=== PATIENT | male | born 1990 | race African-American/Black ===

== ENCOUNTER 2016-08-13 11:19 | Inpatient (IN) | payer OTHER ==
[2016-08-13 12:03] VITALS: BMI 27.4
--- NOTE | 2016-08-13 13:12 | HP ---
CIWA Score - CIWA Score Nausea/Vomitin-No Nausea/No Vomiting Muscle Tremors: 4-Moderate,w/Arms Extend Anxiety: 3 Agitation: 4-Moderately Restless Paroxysmal Sweats: 3 Orientation: 0-Oriented Tacttile Disturbances: 0-None Auditory Disturbances: 0-None Visual Disturbances: 0-None Headache: 1-Very Mild CIWA-Ar Total Score: 15 Admission ROS BHS - HPI Chief Complaint: I cant live like this any more need to stop drinking. Allergies/Adverse Reactions: Allergies Allergy/AdvReac Type Severity Reaction Status Date / Time No Known Allergies Allergy Verified 08/13/16 12:11 History of Present Illness: pt is a 25yr old male with a history of alcohol dependence seeking detox for treatment. Exam Limitations: No Limitations - Ebola screening Have you traveled outside of the country in the last 21 days: No Have you had contact with anyone from an Ebola affected area: No Have you been sick,other than usual withdrawal symptoms: No Do you have a fever: No - Review of Systems Constitutional: Chills, Diaphoresis, Loss of Appetite, Night Sweats EENT: reports: No Symptoms Reported Respiratory: reports: No Symptoms reported Cardiac: reports: Syncope GI: reports: Diarrhea, Poor Appetite, Poor Fluid Intake : reports: No Symptoms Reported Musculoskeletal: reports: Back Pain Integumentary: reports: Flushing, Sweating Neuro: reports: Headache, Tingling, Tremors Endocrine: reports: Excessive Sweating, Flushing, Intolerance to Cold, Intolerance to Heat Hematology: reports: No Symptoms Reported Psychiatric: reports: No Sypmtoms Reported, Judgement Intact, Orientated x3, Agitated, Anxious Other Systems: Reviewed and Negative Patient History - Patient Medical History Hx Anemia: No Hx Asthma: No Hx Chronic Obstructive Pulmonary Disease (COPD): No Hx Cancer: No Hx Cardiac Disorders: No Hx Congestive Heart Failure: No Hx Hypertension: Yes (no medication) Hx Hypercholesterolemia: No Hx Pacemaker: No HX Cerebrovascular Accident: No Hx Seizures: No Hx Dementia: No Hx Diabetes: No Hx Gastrointestinal Disorders: No Hx Liver Disease: No Hx Genitourinary Disorders: No Hx Sexually Transmitted Disorders: No Hx Renal Disease (ESRD): No Hx Thyroid Disease: No Hx Human Immunodeficiency Virus (HIV): No (NEGATIVE HX) Hx Hepatitis C: No (negative) Hx Depression: Yes Hx Suicide Attempt: No (denies) Hx Bipolar Disorder: No Hx Schizophrenia: No Other Medical History: anxiety - Patient Surgical History Past Surgical History: No Hx Neurologic Surgery: No Hx Cataract Extraction: No Hx Cardiac Surgery: No Hx Lung Surgery: No Hx Breast Surgery: No Hx Breast Biopsy: No Hx Abdominal Surgery: No Hx Appendectomy: No Hx Cholecystectomy: No Hx Genitourinary Surgery: Yes (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 History Hx Alcohol Use: Yes Hx Substance Use: Yes Substance Use Type: Alcohol, Marijuana Hx Substance Use Treatment: Yes - Substances Abused Alcohol-beer/binh/cognac Route: Oral Frequency: Daily Amount used: 1 case/3 pts. Age of first use: 14 Date of Last Use: 08/13/16 Marijuana Route: Smoking Frequency: Daily Amount used: $50 Age of first use: 14 Date of Last Use: 08/13/16 Family Disease History - Family Disease History Family Disease History: Other: Grandparent (GM-HTN) Admission Physical Exam BHS - Vital Signs Vital Signs: Vital Signs - 24 hr 08/13/16 11:56 Temperature 97.1 F L Pulse Rate 93 H Respiratory 20 Rate Blood Pressure 135/81 - Physical General Appearance: Yes: Appropriately Dressed, Moderate Distress, Tremorous, Irritable, Sweating, Anxious HEENTM: Yes: Normal Voice, Nasal Congestion Respiratory: Yes: Lungs Clear, Normal Breath Sounds, No Respiratory Distress Neck: Yes: No masses,lesions,Nodules Breast: Yes: Within Normal Limits Cardiology: Yes: Regular Rhythm, Regular Rate, S1, S2 Abdominal: Yes: Normal Bowel Sounds, Non Tender, Soft Genitourinary: Yes: Within Normal Limits Back: Yes: Normal Inspection Musculoskeletal: Yes: full range of Motion Extremities: Yes: Normal Capillary Refill, Normal Inspection, Non-Tender, Tremors Neurological: Yes: Fully Oriented, Alert Integumentary: Yes: Normal Color, Diaphoresis Lymphatic: Yes: Within Normal Limits - Diagnostic (1) Cannabis dependence Current Visit: Yes Status: Chronic (2) HTN (hypertension) Current Visit: Yes Status: Chronic Qualifiers: Hypertension type: essential hypertension Qualified Code(s): I10 - Essential (primary) hypertension (3) Scoliosis deformity of spine Current Visit: Yes Status: Chronic Qualifiers: Scoliosis type: idiopathic Spinal region: lumbar (4) Alcohol dependence with uncomplicated withdrawal Current Visit: Yes Status: Chronic Cleared for Admission [facility] - Detox or Rehab [facility] Level of Care: Medically Managed Detox Regimen/Protocol: Librium [facility] Breath Alcohol Content Breath Alcohol Content: 0.051 Urine Drug Screen - Results Drug Screen Negative: No Urine Drug Screen Results: THC-Marijuana
[2016-08-13] MEDS ORDERED: guaiFENesin/D-METHORPHAN HB 10 ML UNIT-DOSE CUPS PO PRN (13:14)
[2016-08-13] MEDS ORDERED: P-EPHED 60MG/TRIPROLIDI 2.5MG TABLET PO PRN (13:14)
[2016-08-13] MEDS ORDERED: NICOTINE POLACRILEX 2 MG GUM BUC PRN (13:14)
[2016-08-13] MEDS ORDERED: ACETAMINOPHEN 325 MG TABLET (FP) PO PRN (13:14)
[2016-08-13] MEDS ORDERED: MENTHOL/PHENOL 1 EACH UD MM PRN (13:14)
[2016-08-13] MEDS ORDERED: LOPERAMIDE HCL 2 MG CAPSULE PO PRN (13:14)
[2016-08-13] MEDS ORDERED: MAGNESIUM HYDROX 2400MG/30ML ORAL SUSPENSION 30 ML CUP PO PRN (13:14)
[2016-08-13] MEDS ORDERED: MAGNESIUM CITRATE 300 ML BOTTLE PO PRN (13:14)
[2016-08-13] MEDS ORDERED: MAG HYDROX/AL HYDROX/SIMETH 30 ML UNIT-DOSE CUP PO PRN (13:14)
[2016-08-13] MEDS ORDERED: IBUPROFEN 400 MG TABLET (FP) PO PRN (13:14)
[2016-08-13] MEDS ORDERED: chlordiazePOXIDE HCL 25 MG CAPSULE PO ONE (14:27)
[2016-08-13] MEDS: ENALAPRIL MALEATE 5 MG TABLET (FP) PO SCH (15:35)
--- NOTE | 2016-08-13 16:21 | EKG ---
Test Reason : Blood Pressure : / mmHG Vent. Rate : 069 BPM Atrial Rate : 069 BPM P-R Int : 134 ms QRS Dur : 100 ms QT Int : 376 ms P-R-T Axes : 005 043 -07 degrees QTc Int : 402 ms NORMAL SINUS RHYTHM NONSPECIFIC T WAVE ABNORMALITY ABNORMAL ECG NO PREVIOUS ECGS AVAILABLE Confirmed by MONY DENIS MD ([id number]) on 08/13/2016 4:21:16 PM Referred By: Confirmed By:MONY DENIS MD
[2016-08-13] MEDS: chlordiazePOXIDE HCL 25 MG CAPSULE PO SCH ×2 (17:41→22:18)
[2016-08-13 20:11] LABS: URINE APPEARANCE CLEAR; URINE BILIRUBIN NEGATIVE (NEGATIVE); URINE BLOOD NEGATIVE (NEGATIVE); URINE COLOR STRAW; URINE GLUCOSE (UA) NEGATIVE (NEGATIVE); URINE KETONE NEGATIVE (NEGATIVE); URINE LEUK ESTERASE NEGATIVE (NEGATIVE); URINE NITRITE NEGATIVE (NEGATIVE); URINE PROTEIN NEGATIVE (NEGATIVE); URINE UROBILINOGEN NEGATIVE E.U./dl (0.2-1.0)
[2016-08-13] MEDS: THIAMINE HCL 100 MG TABLET (FP) PO SCH (22:18)
[2016-08-14] MEDS: diphenhydrAMINE HCL 50 MG CAPSULE PO PRN (01:12)
[2016-08-14] MEDS: chlordiazePOXIDE HCL 25 MG CAPSULE PO PRN ×2 (01:13→13:48)
[2016-08-14] MEDS: chlordiazePOXIDE HCL 25 MG CAPSULE PO SCH ×4 (05:40→22:16)
[2016-08-14 10:13] LABS: MCH 26.3 pg (25.7-33.7); MCHC 32.8 g/dl (32.0-35.9); MEAN PLT VOLUME 8.4 fl (7.5-11.1); PLATELET COUNT 284 K/MM3 (134-434); RDW 13.7 % (11.9-15.9); WHITE BLOOD COUNT 6.6 K/mm3 (4.0-10.0)
[2016-08-14] MEDS: ENALAPRIL MALEATE 5 MG TABLET (FP) PO SCH (10:17)
[2016-08-14] MEDS: PRENATAL VITAMINS W/ FOLIC ACID TABLET (FP) PO SCH (10:17)
--- NOTE | 2016-08-14 10:19 | PN ---
S CIWA - CIWA Score Nausea/Vomitin-No Nausea/No Vomiting Muscle Tremors: 3 Anxiety: 4-Mod. Anxious/Guarded Agitation: 4-Moderately Restless Paroxysmal Sweats: 3 Orientation: 0-Oriented Tacttile Disturbances: 0-None Auditory Disturbances: 0-None Visual Disturbances: 0-None Headache: 0-None Present CIWA-Ar Total Score: 14 BHS Progress Note (SOAP) Subjective: anxiety,tremors,sweating,interrupted sleep,restless. Objective: 08/14/16 10:18 Vital Signs - 8 hr 08/14/16 08/14/16 08/14/16 03:30 06:33 09:53 Temperature 97.1 F L Pulse Rate 63 74 Respiratory 18 18 18 Rate Blood Pressure 125/87 133/95 Laboratory Tests 08/13/16 16:00 Urine Color Straw Urine Appearance Clear Urine pH 6.0 D Ur Specific [place] 1.014 Urine Protein Negative Urine Glucose (UA) Negative Urine Ketones Negative Urine Blood Negative Urine Nitrite Negative Urine Bilirubin Negative Urine Urobilinogen Negative Ur Leukocyte Esterase Negative Assessment: 08/14/16 10:18 withdrawal sx. Plan: continue detox
[2016-08-14 10:50] LABS: ALBUMIN 4.7 g/dl (3.4-5.0); ALK PHOS 116 U/L (45-117); ANION GAP 13 (8-16); BILIRUBIN,TOTAL 0.4 mg/dL (0.2-1.0); CALCIUM 9.9 mg/dL (8.5-10.1); CO2 24 mmol/L (21-32); GLUCOSE,RANDOM 103 mg/dL (74-106); SGOT/AST 23 U/L (15-37); SGPT/ALT 40 U/L (12-78); TOT PROT 8.1 g/dl (6.4-8.2)
--- NOTE | 2016-08-14 12:02 | CONSULT ---
[facility] Psychiatric Consult - Data Date of interview: 08/14/16 Admission source: [facility] Identifying data: Readmission to [facility] for this 25 y/o [place] male seeking detox treatment on for alcohol and marijuana dependence.Patient is single,a father of two,domiciled,unemployed and supported by his paternal grandmother. Substance Abuse History: - Smoking Cessation. Smoking history: Former smoker. Have you smoked in the past 12 months: Yes. Aproximately how many cigarettes per day: 3. Hx Chewing Tobacco Use: No. Initiated information on smoking cessation: No. 'Breaking Loose' booklet given: 08/13/16. - Substance & Tx. History. Hx Alcohol Use: Yes. Hx Substance Use: Yes. Substance Use Type: Alcohol, Marijuana. Hx Substance Use Treatment: Yes. - Substances Abused. Alcohol-beer/binh/cognac. Route: Oral. Frequency: Daily. Amount used: 1 case/3 pts. Age of first use: 14. Date of Last Use: 08/13/16. Marijuana. Route: Smoking. Frequency: Daily. Amount used: $50. Age of first use: 14. Date of Last Use: 08/13/16. Confirmed by patient. Medical History: Hypertension and a history of blocked ureter in 2004. Psychiatric History: Patient denies history of psychiatric illness. Physical/Sexual Abuse/Trauma History: Patient denies. Additional Comment: Urine Drug Screen Results: THC-Marijuana.Noted. Mental Status Exam - Mental Status Exam Alert and Oriented to: Time, Place, Person Cognitive Function: Good Patient Appearance: Well Groomed Mood: Withdrawn Affect: Appropriate, Normal Range Patient Behavior: Fatigued, Appropriate, Cooperative Speech Pattern: Clear, Appropriate Voice Loudness: Normal Thought Process: Intact, Goal Oriented Thought Disorder: Not Present Hallucinations: Denies Suicidal Ideation: Denies Homicidal Ideation: Denies Insight/Judgement: Poor Sleep: Poorly, Difficulty falling asleep Appetite: Good Muscle strength/Tone: Normal Gait/Station: Normal Psychiatric Findings - Problem List ([place] 1, 2,3) (1) Alcohol dependence with uncomplicated withdrawal Current Visit: Yes Status: Acute (2) Cannabis dependence Current Visit: Yes Status: Acute (3) Drug-induced mood disorder Current Visit: Yes Status: Acute (4) HTN (hypertension) Current Visit: Yes Status: Chronic Qualifiers: Hypertension type: essential hypertension Qualified Code(s): I10 - Essential (primary) hypertension (5) Scoliosis deformity of spine Current Visit: Yes Status: Chronic Qualifiers: Scoliosis type: idiopathic Spinal region: lumbar (6) Insomnia Current Visit: Yes Status: Acute - Initial Treatment Plan Initial Treatment Plan: Psychoeducation.Detoxification.Zolpidem 10 mg po hs prn.Side effects/benefits discussed with patient.He agrees with this plan.Observation.
[2016-08-14] MEDS: hydrOXYzine PAMOATE 50 MG CAPSULE (FP) PO PRN (13:48)
[2016-08-14] MEDS ORDERED: ZOLPIDEM TARTRATE 10 MG TABLET (PARK CARE ONLY) PO PRN (22:00)
[2016-08-14] MEDS: THIAMINE HCL 100 MG TABLET (FP) PO SCH (22:16)
[2016-08-15] MEDS: chlordiazePOXIDE HCL 25 MG CAPSULE PO SCH ×2 (05:34→10:09)
[2016-08-15] MEDS: ENALAPRIL MALEATE 5 MG TABLET (FP) PO SCH (10:09)
[2016-08-15] MEDS: PRENATAL VITAMINS W/ FOLIC ACID TABLET (FP) PO SCH (10:09)
[2016-08-15] MEDS: chlordiazePOXIDE HCL 25 MG CAPSULE PO PRN (13:56)
[2016-08-15] MEDS: hydrOXYzine PAMOATE 50 MG CAPSULE (FP) PO PRN (13:56)
--- NOTE | 2016-08-15 16:25 | PN ---
[facility] CIWA - CIWA Score Nausea/Vomitin-No Nausea/No Vomiting Muscle Tremors: 3 Anxiety: 4-Mod. Anxious/Guarded Agitation: 3 Paroxysmal Sweats: 3 Orientation: 0-Oriented Tacttile Disturbances: 0-None Auditory Disturbances: 0-None Visual Disturbances: 0-None Headache: 0-None Present CIWA-Ar Total Score: 13 S Progress Note (SOAP) Subjective: anxiety,tremors,sweating,interrupted sleep,restless Objective: 08/15/16 16:24 Vital Signs - 8 hr 08/15/16 08/15/16 10:16 13:36 Temperature 97.2 F L 98.2 F Pulse Rate 72 67 Respiratory 18 20 Rate Blood Pressure 135/94 137/93 Laboratory Last Values WBC 6.6 K/mm3 (4.0-10.0) 08/14/16 05:50 RBC 5.52 M/mm3 (4.00-5.60) 08/14/16 05:50 Hgb 14.5 GM/dL (11.7-16.9) 08/14/16 05:50 Hct 44.1 % (35.4-49) 08/14/16 05:50 MCV 80.0 fl (80-96) 08/14/16 05:50 MCHC 32.8 g/dl (32.0-35.9) 08/14/16 05:50 RDW 13.7 % (11.9-15.9) 08/14/16 05:50 Plt Count 284 K/MM3 (134-434) D 08/14/16 05:50 MPV 8.4 fl (7.5-11.1) 08/14/16 05:50 Sodium 138 mmol/L (136-145) 08/14/16 05:50 Potassium 3.9 mmol/L (3.5-5.1) 08/14/16 05:50 Chloride 101 mmol/L (98-107) 08/14/16 05:50 Carbon Dioxide 24 mmol/L (21-32) 08/14/16 05:50 Anion Gap 13 (8-16) 08/14/16 05:50 BUN 11 mg/dL (7-18) 08/14/16 05:50 Creatinine 1.0 mg/dL (0.7-1.3) 08/14/16 05:50 Creat Clearance w eGFR > 60 (>60) 08/14/16 05:50 Random Glucose 103 mg/dL (74-106) D 08/14/16 05:50 Calcium 9.9 mg/dL (8.5-10.1) 08/14/16 05:50 Total Bilirubin 0.4 mg/dL (0.2-1.0) 08/14/16 05:50 AST 23 U/L (15-37) D 08/14/16 05:50 ALT 40 U/L (12-78) 08/14/16 05:50 Alkaline Phosphatase 116 U/L (45-117) 08/14/16 05:50 Total Protein 8.1 g/dl (6.4-8.2) 08/14/16 05:50 Albumin 4.7 g/dl (3.4-5.0) D 08/14/16 05:50 Urine Color Straw 08/13/16 16:00 Urine Appearance Clear 08/13/16 16:00 Urine pH 6.0 (5.0-8.0) D 08/13/16 16:00 Ur Specific [place] 1.014 (1.001-1.035) 08/13/16 16:00 Urine Protein Negative (NEGATIVE) 08/13/16 16:00 Urine Glucose (UA) Negative (NEGATIVE) 08/13/16 16:00 Urine Ketones Negative (NEGATIVE) 08/13/16 16:00 Urine Blood Negative (NEGATIVE) 08/13/16 16:00 Urine Nitrite Negative (NEGATIVE) 08/13/16 16:00 Urine Bilirubin Negative (NEGATIVE) 08/13/16 16:00 Urine Urobilinogen Negative E.U./dl (0.2-1.0) 08/13/16 16:00 Ur Leukocyte Esterase Negative (NEGATIVE) 08/13/16 16:00 RPR Titer Nonreactive (NONREACTIVE) 08/14/16 05:50 labs noted Assessment: 08/15/16 16:24 withdrawal sx. Plan: continue detox
[2016-08-15] MEDS: chlordiazePOXIDE 5 MG CAPSULE PO SCH ×2 (17:15→22:19)
[2016-08-15] MEDS ORDERED: CYCLOBENZAPRINE HCL 10 MG TABLET (FP) PO ONE (19:59)
--- NOTE | 2016-08-15 20:00 | PN ---
S Progress Note Note: RECEIVED NURSE CALL PATIENT HAS MUSCLE CRAMP ONE DOSE OF FLEXERIL NOW CONTINUE DETOX
[2016-08-15] MEDS: THIAMINE HCL 100 MG TABLET (FP) PO SCH (22:20)
[2016-08-15] MEDS: diphenhydrAMINE HCL 50 MG CAPSULE PO PRN (22:20)
[2016-08-16] MEDS: chlordiazePOXIDE 5 MG CAPSULE PO SCH ×2 (05:46→10:23)
[2016-08-16] MEDS: ENALAPRIL MALEATE 5 MG TABLET (FP) PO SCH (10:23)
[2016-08-16] MEDS: PRENATAL VITAMINS W/ FOLIC ACID TABLET (FP) PO SCH (10:23)
--- NOTE | 2016-08-16 12:18 | PN ---
[facility] Progress Note (SOAP) Subjective: Pt. fell two weeks ago & injured lt. hip,did not seek medical attention.He told no one until today. Objective: 08/16/16 12:15 Vital Signs - 8 hr 08/16/16 08/16/16 06:40 09:55 Temperature 96.3 F L 96.2 F L Pulse Rate 59 L 72 Respiratory 18 18 Rate Blood Pressure 122/83 127/77 Laboratory Last Values WBC 6.6 K/mm3 (4.0-10.0) 08/14/16 05:50 RBC 5.52 M/mm3 (4.00-5.60) 08/14/16 05:50 Hgb 14.5 GM/dL (11.7-16.9) 08/14/16 05:50 Hct 44.1 % (35.4-49) 08/14/16 05:50 MCV 80.0 fl (80-96) 08/14/16 05:50 MCHC 32.8 g/dl (32.0-35.9) 08/14/16 05:50 RDW 13.7 % (11.9-15.9) 08/14/16 05:50 Plt Count 284 K/MM3 (134-434) D 08/14/16 05:50 MPV 8.4 fl (7.5-11.1) 08/14/16 05:50 Sodium 138 mmol/L (136-145) 08/14/16 05:50 Potassium 3.9 mmol/L (3.5-5.1) 08/14/16 05:50 Chloride 101 mmol/L (98-107) 08/14/16 05:50 Carbon Dioxide 24 mmol/L (21-32) 08/14/16 05:50 Anion Gap 13 (8-16) 08/14/16 05:50 BUN 11 mg/dL (7-18) 08/14/16 05:50 Creatinine 1.0 mg/dL (0.7-1.3) 08/14/16 05:50 Creat Clearance w eGFR > 60 (>60) 08/14/16 05:50 Random Glucose 103 mg/dL (74-106) D 08/14/16 05:50 Calcium 9.9 mg/dL (8.5-10.1) 08/14/16 05:50 Total Bilirubin 0.4 mg/dL (0.2-1.0) 08/14/16 05:50 AST 23 U/L (15-37) D 08/14/16 05:50 ALT 40 U/L (12-78) 08/14/16 05:50 Alkaline Phosphatase 116 U/L (45-117) 08/14/16 05:50 Total Protein 8.1 g/dl (6.4-8.2) 08/14/16 05:50 Albumin 4.7 g/dl (3.4-5.0) D 08/14/16 05:50 Urine Color Straw 08/13/16 16:00 Urine Appearance Clear 08/13/16 16:00 Urine pH 6.0 (5.0-8.0) D 08/13/16 16:00 Ur Specific [place] 1.014 (1.001-1.035) 08/13/16 16:00 Urine Protein Negative (NEGATIVE) 08/13/16 16:00 Urine Glucose (UA) Negative (NEGATIVE) 08/13/16 16:00 Urine Ketones Negative (NEGATIVE) 08/13/16 16:00 Urine Blood Negative (NEGATIVE) 08/13/16 16:00 Urine Nitrite Negative (NEGATIVE) 08/13/16 16:00 Urine Bilirubin Negative (NEGATIVE) 08/13/16 16:00 Urine Urobilinogen Negative E.U./dl (0.2-1.0) 08/13/16 16:00 Ur Leukocyte Esterase Negative (NEGATIVE) 08/13/16 16:00 RPR Titer Nonreactive (NONREACTIVE) 08/14/16 05:50 Exam : there's a quarter size lump left hip,normal ROM Assessment: 08/16/16 12:16 withdrawal sx. Plan: continue detox X-ray lt. hip
[2016-08-16] MEDS: chlordiazePOXIDE HCL 10 MG CAPSULE PO SCH ×2 (17:20→22:18)
[2016-08-16] MEDS: hydrOXYzine PAMOATE 50 MG CAPSULE (FP) PO PRN (17:20)
[2016-08-16] MEDS: THIAMINE HCL 100 MG TABLET (FP) PO SCH (22:18)
[2016-08-16] MEDS: diphenhydrAMINE HCL 50 MG CAPSULE PO PRN (22:18)
[2016-08-17] MEDS: chlordiazePOXIDE HCL 10 MG CAPSULE PO SCH (05:50)
[2016-08-17 06:31] VITALS: BP 123/78; PULSE 68; TEMP 96.3
[2016-08-17] MEDS: PRENATAL VITAMINS W/ FOLIC ACID TABLET (FP) PO SCH (09:33)
[2016-08-17] MEDS: ENALAPRIL MALEATE 5 MG TABLET (FP) PO SCH (09:33)
--- NOTE | 2016-08-17 10:24 | DS ---
[facility] Detox Discharge Summary Admission Date: 08/13/16 Discharge Date: 08/17/16 - History Present History: Alcohol Dependence, Cannabis Dependence Additional Comments: DETOX COMPLETED. ALERT O X 3. NAD. Pertinent Past History: SCOLIOSIS SPINE HTN MOOD DISORDER - Physical Exam Results Vital Signs: Vital Signs Temperature 96.3 F L 08/17/16 06:31 Pulse Rate 68 08/17/16 06:31 Respiratory Rate 18 08/17/16 06:31 Blood Pressure 123/78 08/17/16 06:31 O2 Sat by Pulse Oximetry (%) Pertinent Admission Physical Exam Findings: WITHDRAWAL SX - Treatment Hospital Course: Detox Protocol Followed, Detoxed Safely, Responded well, Discharged Condition Good - Medication Discharge Medications: Ambulatory Orders Enalapril Maleate 5 mg PO DAILY #30 tablet 04/17/14 - Diagnosis (1) Alcohol dependence with uncomplicated withdrawal Status: Acute (2) Cannabis dependence Status: Acute (3) HTN (hypertension) Status: Chronic Qualifiers: Hypertension type: essential hypertension Qualified Code(s): I10 - Essential (primary) hypertension (4) Scoliosis deformity of spine Status: Chronic Qualifiers: Scoliosis type: idiopathic Spinal region: lumbar (5) Drug-induced mood disorder Status: Acute (6) Insomnia Status: Acute - AMA Did Patient Leave Against Medical Advice: No
== END 2016-08-17 09:34 | disposition home or self-care (01) | DRG 775 ==
LOC: YASAS 11:19 → Y3N 14:14
PROVIDERS: ADMIT Internal Medicine; ATTEND Internal Medicine
PROC: HZ2ZZZZ Detoxification Services for Substance Abuse Treatment (ICD-10-PCS; principal; 2016-08-17)
DX: F10.230 Alcohol dependence with withdrawal, uncomplicated (principal); F12.20 Cannabis dependence, uncomplicated; G47.00 Insomnia, unspecified
CPT/HCPCS: 36415; 73523-TC; 80053; 81003; 85027; 86593; 93005; 93010

== ENCOUNTER 2021-11-06 15:28 | Inpatient (IN) | payer OTHER ==
[2021-11-06 18:23] VITALS: BMI 26.6
[2021-11-06] MEDS ORDERED: ACETAMINOPHEN 325 MG TABLET (FP) PO PRN ×2 (18:42)
[2021-11-06] MEDS ORDERED: MAG HYDROX/AL HYDROX/SIMETH 30 ML UNIT-DOSE CUP PO PRN (18:42)
[2021-11-06] MEDS ORDERED: IBUPROFEN 400 MG TABLET (FP) PO PRN (18:42)
[2021-11-06] MEDS ORDERED: P-EPHED 60MG/TRIPROLIDI 2.5MG TABLET PO PRN (18:42)
[2021-11-06] MEDS ORDERED: BISMUTH SUBSALICYLATE 524 MG/30 ML PO PRN (18:42)
[2021-11-06] MEDS ORDERED: ONDANSETRON *ODT* 4 MG TABLET SL PRN (18:42)
[2021-11-06] MEDS ORDERED: METHOCARBAMOL 500 MG TABLET PO PRN (18:42)
[2021-11-06] MEDS ORDERED: LOPERAMIDE HCL 2 MG CAPSULE PO PRN (18:42)
[2021-11-06] MEDS ORDERED: MAGNESIUM CITRATE 300 ML BOTTLE PO PRN (18:42)
[2021-11-06] MEDS ORDERED: BENZOCAINE/MENTHOL (CHLORASEPTIC ) LOZENGE MM PRN (18:42)
[2021-11-06] MEDS ORDERED: MAGNESIUM HYDROX 2400MG/30ML ORAL SUSPENSION 30 ML CUP PO PRN (18:42)
[2021-11-06] MEDS ORDERED: DICYCLOMINE HCL 10 MG CAPSULE PO PRN (18:42)
[2021-11-06] MEDS ORDERED: NICOTINE 10 MG CARTRIDGE (INHALER) IH PRN (18:42)
[2021-11-06] MEDS ORDERED: chlordiazePOXIDE HCL 25 MG CAPSULE PO PRN (18:44)
[2021-11-07] MEDS: THIAMINE HCL 100 MG TABLET (FP) PO SCH ×2 (01:34→22:50)
[2021-11-07] MEDS: chlordiazePOXIDE HCL 25 MG CAPSULE PO SCH ×5 (01:34→22:51)
[2021-11-07] MEDS: MELATONIN 5 MG TABLETS PO PRN (01:35)
[2021-11-07] MEDS: PRENATAL VITAMINS W/ FOLIC ACID TABLET (FP) PO SCH (10:20)
[2021-11-07 11:25] LABS: HEMATOCRIT 38.8 % (35.4-49); HEMOGLOBIN 13.1 GM/dL (11.7-16.9); MCH 26.9 pg (25.7-33.7); MCHC 33.8 g/dl (32.0-35.9); MEAN CELL VOLUME 79.6 fl (80-96); MEAN PLT VOLUME 7.6 fl (7.5-11.1); PLATELET COUNT 315 10^3/uL (134-434); RBC 4.88 M/mm3 (4.00-5.60); RDW 14.3 % (11.9-15.9); WHITE BLOOD COUNT 5.1 K/mm3 (4.0-10.0)
[2021-11-07 12:16] LABS: BLOOD UREA NITROGEN 11.6 mg/dL (7-18); CALCIUM 9.2 mg/dL (8.5-10.1)
[2021-11-07 12:17] LABS: ALBUMIN 3.5 g/dl (3.4-5.0); TOT PROT 6.8 g/dl (6.4-8.2)
[2021-11-07 12:22] LABS: BILIRUBIN,TOTAL 0.5 mg/dL (0.2-1)
[2021-11-08] MEDS: chlordiazePOXIDE HCL 25 MG CAPSULE PO SCH ×4 (05:40→23:14)
[2021-11-08] MEDS: PRENATAL VITAMINS W/ FOLIC ACID TABLET (FP) PO SCH (10:14)
[2021-11-08 14:08] LABS: SARS-CoV-2 NAA Not Detected (Not Detected)
[2021-11-08] MEDS: hydrOXYzine PAMOATE 25 MG CAPSULE (FP) PO PRN ×2 (19:15→23:14)
[2021-11-08] MEDS: MELATONIN 5 MG TABLETS PO PRN (23:14)
[2021-11-08] MEDS: THIAMINE HCL 100 MG TABLET (FP) PO SCH (23:14)
[2021-11-09] MEDS ORDERED: chlordiazePOXIDE HCL 10 MG CAPSULE PO PRN
[2021-11-09] MEDS: chlordiazePOXIDE HCL 10 MG CAPSULE PO SCH ×4 (06:42→22:37)
[2021-11-09] MEDS: PRENATAL VITAMINS W/ FOLIC ACID TABLET (FP) PO SCH (10:30)
[2021-11-09] MEDS: THIAMINE HCL 100 MG TABLET (FP) PO SCH (22:36)
[2021-11-10] MEDS ORDERED: chlordiazePOXIDE HCL 10 MG CAPSULE PO SCH (05:00)
[2021-11-10 08:59] VITALS: TEMP 97.2
[2021-11-10] MEDS: PRENATAL VITAMINS W/ FOLIC ACID TABLET (FP) PO SCH (10:57)
[2021-11-10 13:07] VITALS: BP 113/68; PULSE 84
[2021-11-11] MEDS ORDERED: chlordiazePOXIDE HCL 10 MG CAPSULE PO ONE (05:00)
== END 2021-11-10 14:38 | disposition other institution (70) | DRG 775 ==
LOC: YASAS 15:28 → Y3N 22:48
PROVIDERS: ADMIT Allergy & Immunology; ATTEND Surgery
PROC: HZ2ZZZZ Detoxification Services for Substance Abuse Treatment (ICD-10-PCS; principal; 2021-11-06)
DX: F10.230 Alcohol dependence with withdrawal, uncomplicated (principal); F12.20 Cannabis dependence, uncomplicated; F17.210 Nicotine dependence, cigarettes, uncomplicated; G47.00 Insomnia, unspecified; M41.26 Other idiopathic scoliosis, lumbar region
CPT/HCPCS: 36415; 80053; 82947; 83036; 85027; 86780; C9803-CS; U0003; U0005

== ENCOUNTER 2021-11-10 15:11 | Inpatient (IN) | payer OTHER ==
[2021-11-10] MEDS ORDERED: MAG HYDROX/AL HYDROX/SIMETH 30 ML UNIT-DOSE CUP PO PRN (16:24)
[2021-11-10] MEDS ORDERED: IBUPROFEN 400 MG TABLET (FP) PO PRN (16:24)
[2021-11-10] MEDS ORDERED: MAGNESIUM HYDROX 2400MG/30ML ORAL SUSPENSION 30 ML CUP PO PRN (16:24)
[2021-11-10] MEDS ORDERED: NALOXONE HCL (KLOXXADO) 8 MG SPRAY NS PRN (16:24)
[2021-11-10] MEDS ORDERED: P-EPHED 60MG/TRIPROLIDI 2.5MG TABLET PO PRN (16:24)
[2021-11-10] MEDS ORDERED: guaiFENesin 200 MG/10 ML 10 ML UNIT-DOSE CUPS PO PRN (16:24)
[2021-11-10] MEDS ORDERED: LOPERAMIDE HCL 2 MG CAPSULE PO PRN (16:24)
[2021-11-10] MEDS ORDERED: MAGNESIUM CITRATE 300 ML BOTTLE PO PRN (16:24)
[2021-11-10] MEDS ORDERED: ACETAMINOPHEN 325 MG TABLET (FP) PO PRN (16:24)
[2021-11-10] MEDS ORDERED: NICOTINE 10 MG CARTRIDGE (INHALER) IH PRN (16:24)
[2021-11-10] MEDS: NICOTINE 7 MG/24 HOURS TOPICAL PATCH TD SCH (19:18)
[2021-11-10] MEDS: hydrOXYzine PAMOATE 25 MG CAPSULE (FP) PO SCH ×2 (19:18→21:17)
[2021-11-10] MEDS: PRENATAL VITAMINS W/ FOLIC ACID TABLET (FP) PO SCH (19:18)
[2021-11-10] MEDS: THIAMINE HCL 100 MG TABLET (FP) PO SCH (21:16)
[2021-11-10] MEDS: QUEtiapine FUMARATE 100 MG TABLET (FP) PO SCH (21:17)
[2021-11-10] MEDS: MELATONIN 5 MG TABLETS PO SCH (21:17)
[2021-11-11] MEDS: hydrOXYzine PAMOATE 25 MG CAPSULE (FP) PO SCH ×5 (07:28→21:50)
[2021-11-11] MEDS: PRENATAL VITAMINS W/ FOLIC ACID TABLET (FP) PO SCH (09:17)
[2021-11-11] MEDS: NICOTINE 7 MG/24 HOURS TOPICAL PATCH TD SCH (09:18)
[2021-11-11 09:46] LABS: HEMATOCRIT 39.4 % (35.4-49); HEMOGLOBIN 13.3 GM/dL (11.7-16.9); MCH 26.8 pg (25.7-33.7); MCHC 33.6 g/dl (32.0-35.9); MEAN CELL VOLUME 79.6 fl (80-96); MEAN PLT VOLUME 7.7 fl (7.5-11.1); PLATELET COUNT 286 10^3/uL (134-434); RBC 4.95 M/mm3 (4.00-5.60); RDW 14.4 % (11.9-15.9); WHITE BLOOD COUNT 6.3 K/mm3 (4.0-10.0)
[2021-11-11 10:01] LABS: CALCIUM 9.6 mg/dL (8.5-10.1)
[2021-11-11 10:02] LABS: ALBUMIN 3.6 g/dl (3.4-5.0); BLOOD UREA NITROGEN 13.2 mg/dL (7-18)
[2021-11-11 10:04] LABS: CREATININE 0.8 mg/dL (0.55-1.3)
[2021-11-11 10:06] LABS: BILIRUBIN,TOTAL 0.2 mg/dL (0.2-1); TOT PROT 6.8 g/dl (6.4-8.2)
[2021-11-11 11:24] LABS: SYPHILIS W/ RPR CONF NON-REACTIVE (NONREACTIVE)
[2021-11-11] MEDS: QUEtiapine FUMARATE 100 MG TABLET (FP) PO SCH (21:50)
[2021-11-11] MEDS: THIAMINE HCL 100 MG TABLET (FP) PO SCH (21:50)
[2021-11-11] MEDS: MELATONIN 5 MG TABLETS PO SCH (21:50)
[2021-11-12] MEDS: hydrOXYzine PAMOATE 25 MG CAPSULE (FP) PO SCH ×5 (06:20→21:05)
[2021-11-12] MEDS: NICOTINE 7 MG/24 HOURS TOPICAL PATCH TD SCH (09:16)
[2021-11-12] MEDS: PRENATAL VITAMINS W/ FOLIC ACID TABLET (FP) PO SCH (09:16)
[2021-11-12] MEDS ORDERED: QUEtiapine FUMARATE 50 MG TABLET ONE (18:55)
[2021-11-12] MEDS: MELATONIN 5 MG TABLETS PO SCH (21:04)
[2021-11-12] MEDS: THIAMINE HCL 100 MG TABLET (FP) PO SCH (21:04)
[2021-11-12] MEDS: QUEtiapine FUMARATE 100 MG TABLET (FP) PO SCH (21:05)
[2021-11-13] MEDS: hydrOXYzine PAMOATE 25 MG CAPSULE (FP) PO SCH ×2 (06:45→10:33)
[2021-11-13] MEDS: PRENATAL VITAMINS W/ FOLIC ACID TABLET (FP) PO SCH (10:33)
[2021-11-13] MEDS: NICOTINE 7 MG/24 HOURS TOPICAL PATCH TD SCH (10:33)
[2021-11-13 16:08] LABS: SARS-CoV-2 NAA Not Detected (Not Detected)
[2021-11-13] MEDS: MELATONIN 5 MG TABLETS PO SCH (21:25)
[2021-11-13] MEDS: THIAMINE HCL 100 MG TABLET (FP) PO SCH (21:25)
[2021-11-13] MEDS: QUEtiapine FUMARATE 100 MG TABLET (FP) PO SCH (21:26)
[2021-11-14] MEDS: NICOTINE 7 MG/24 HOURS TOPICAL PATCH TD SCH (10:02)
[2021-11-14] MEDS: hydrOXYzine PAMOATE 25 MG CAPSULE (FP) PO PRN (10:02)
[2021-11-14] MEDS: PRENATAL VITAMINS W/ FOLIC ACID TABLET (FP) PO SCH (10:02)
[2021-11-14 20:31] LABS: PH,URINE 6.5 (5.0-8.0); URINE APPEARANCE CLEAR; URINE BILIRUBIN NEGATIVE (NEGATIVE); URINE COLOR YELLOW; URINE GLUCOSE (UA) NEGATIVE (NEGATIVE); URINE KETONE NEGATIVE (NEGATIVE); URINE LEUK ESTERASE NEGATIVE (NEGATIVE); URINE NITRITE NEGATIVE (NEGATIVE); URINE PROTEIN NEGATIVE (NEGATIVE); URINE UROBILINOGEN 0.2 mg/dL (0.2-1.0)
[2021-11-14] MEDS: THIAMINE HCL 100 MG TABLET (FP) PO SCH (22:35)
[2021-11-14] MEDS: QUEtiapine FUMARATE 100 MG TABLET (FP) PO SCH (22:35)
[2021-11-14] MEDS: MELATONIN 5 MG TABLETS PO SCH (22:35)
[2021-11-15] MEDS: PRENATAL VITAMINS W/ FOLIC ACID TABLET (FP) PO SCH (10:08)
[2021-11-15] MEDS: NICOTINE 7 MG/24 HOURS TOPICAL PATCH TD SCH (10:08)
[2021-11-15] MEDS: OSELTAMIVIR PHOSPHATE 75 MG CAPSULE PO SCH (20:55)
[2021-11-15] MEDS: QUEtiapine FUMARATE 100 MG TABLET (FP) PO SCH (21:00)
[2021-11-15] MEDS: THIAMINE HCL 100 MG TABLET (FP) PO SCH (21:00)
[2021-11-15] MEDS: MELATONIN 5 MG TABLETS PO SCH (21:00)
[2021-11-16] MEDS: NICOTINE 7 MG/24 HOURS TOPICAL PATCH TD SCH (09:37)
[2021-11-16] MEDS: PRENATAL VITAMINS W/ FOLIC ACID TABLET (FP) PO SCH (09:37)
[2021-11-16] MEDS: hydrOXYzine PAMOATE 25 MG CAPSULE (FP) PO PRN (09:38)
[2021-11-16] MEDS: OSELTAMIVIR PHOSPHATE 75 MG CAPSULE PO SCH (11:07)
[2021-11-16] MEDS: MELATONIN 5 MG TABLETS PO SCH (21:29)
[2021-11-16] MEDS: THIAMINE HCL 100 MG TABLET (FP) PO SCH (21:29)
[2021-11-16] MEDS: QUEtiapine FUMARATE 100 MG TABLET (FP) PO SCH (21:29)
[2021-11-17] MEDS: OSELTAMIVIR PHOSPHATE 75 MG CAPSULE PO SCH (09:20)
[2021-11-17] MEDS: PRENATAL VITAMINS W/ FOLIC ACID TABLET (FP) PO SCH (09:20)
[2021-11-17] MEDS: QUEtiapine FUMARATE 100 MG TABLET (FP) PO SCH ×2 (09:21→21:23)
[2021-11-17] MEDS: NICOTINE 7 MG/24 HOURS TOPICAL PATCH TD SCH (09:53)
[2021-11-17] MEDS: THIAMINE HCL 100 MG TABLET (FP) PO SCH (21:22)
[2021-11-17] MEDS: MELATONIN 5 MG TABLETS PO SCH (21:22)
[2021-11-18] MEDS: OSELTAMIVIR PHOSPHATE 75 MG CAPSULE PO SCH (10:15)
[2021-11-18] MEDS: QUEtiapine FUMARATE 100 MG TABLET (FP) PO SCH ×2 (10:15→21:34)
[2021-11-18] MEDS: NICOTINE 7 MG/24 HOURS TOPICAL PATCH TD SCH (10:15)
[2021-11-18] MEDS: PRENATAL VITAMINS W/ FOLIC ACID TABLET (FP) PO SCH (10:15)
[2021-11-18] MEDS: hydrOXYzine PAMOATE 25 MG CAPSULE (FP) PO PRN (10:17)
[2021-11-18] MEDS: MELATONIN 5 MG TABLETS PO SCH (21:34)
[2021-11-18] MEDS: THIAMINE HCL 100 MG TABLET (FP) PO SCH (21:34)
[2021-11-19] MEDS: PRENATAL VITAMINS W/ FOLIC ACID TABLET (FP) PO SCH (10:26)
[2021-11-19] MEDS: OSELTAMIVIR PHOSPHATE 75 MG CAPSULE PO SCH (10:26)
[2021-11-19] MEDS: QUEtiapine FUMARATE 100 MG TABLET (FP) PO SCH ×2 (10:27→21:32)
[2021-11-19] MEDS: hydrOXYzine PAMOATE 25 MG CAPSULE (FP) PO PRN (10:27)
[2021-11-19] MEDS: NICOTINE 7 MG/24 HOURS TOPICAL PATCH TD SCH (10:27)
[2021-11-19] MEDS: THIAMINE HCL 100 MG TABLET (FP) PO SCH (21:33)
[2021-11-19] MEDS: MELATONIN 5 MG TABLETS PO SCH (21:33)
[2021-11-20] MEDS: hydrOXYzine PAMOATE 25 MG CAPSULE (FP) PO PRN (10:02)
[2021-11-20] MEDS: PRENATAL VITAMINS W/ FOLIC ACID TABLET (FP) PO SCH (10:02)
[2021-11-20] MEDS: NICOTINE 7 MG/24 HOURS TOPICAL PATCH TD SCH (10:03)
[2021-11-20] MEDS: QUEtiapine FUMARATE 100 MG TABLET (FP) PO SCH ×2 (10:03→21:35)
[2021-11-20] MEDS: OSELTAMIVIR PHOSPHATE 75 MG CAPSULE PO SCH (15:24)
[2021-11-20] MEDS: MELATONIN 5 MG TABLETS PO SCH (21:35)
[2021-11-20] MEDS: THIAMINE HCL 100 MG TABLET (FP) PO SCH (21:35)
[2021-11-21] MEDS: PRENATAL VITAMINS W/ FOLIC ACID TABLET (FP) PO SCH (09:48)
[2021-11-21] MEDS: QUEtiapine FUMARATE 100 MG TABLET (FP) PO SCH ×2 (09:48→21:25)
[2021-11-21] MEDS: NICOTINE 7 MG/24 HOURS TOPICAL PATCH TD SCH (09:48)
[2021-11-21] MEDS: MELATONIN 5 MG TABLETS PO SCH (21:25)
[2021-11-21] MEDS: THIAMINE HCL 100 MG TABLET (FP) PO SCH (21:25)
[2021-11-22] MEDS: QUEtiapine FUMARATE 100 MG TABLET (FP) PO SCH ×2 (10:21→21:31)
[2021-11-22] MEDS: hydrOXYzine PAMOATE 25 MG CAPSULE (FP) PO PRN (10:21)
[2021-11-22] MEDS: PRENATAL VITAMINS W/ FOLIC ACID TABLET (FP) PO SCH (10:21)
[2021-11-22] MEDS: NICOTINE 7 MG/24 HOURS TOPICAL PATCH TD SCH (10:21)
[2021-11-22] MEDS: MELATONIN 5 MG TABLETS PO SCH (21:31)
[2021-11-22] MEDS: THIAMINE HCL 100 MG TABLET (FP) PO SCH (21:31)
[2021-11-23] MEDS: PRENATAL VITAMINS W/ FOLIC ACID TABLET (FP) PO SCH (10:10)
[2021-11-23] MEDS: hydrOXYzine PAMOATE 25 MG CAPSULE (FP) PO PRN (10:10)
[2021-11-23] MEDS: NICOTINE 7 MG/24 HOURS TOPICAL PATCH TD SCH (10:11)
[2021-11-23] MEDS: QUEtiapine FUMARATE 100 MG TABLET (FP) PO SCH ×2 (10:12→21:46)
[2021-11-23] MEDS: THIAMINE HCL 100 MG TABLET (FP) PO SCH (21:46)
[2021-11-23] MEDS: MELATONIN 5 MG TABLETS PO SCH (21:46)
[2021-11-24 07:01] VITALS: BP 137/80; PULSE 84; TEMP 98
== END 2021-11-24 09:38 | disposition home or self-care (01) | DRG 772 ==
LOC: YASAS 15:11 → Y3W 15:13
PROVIDERS: ADMIT Allergy & Immunology; ATTEND Psychiatry & Neurology Pain Medicine
PROC: HZ42ZZZ Group Counseling for Substance Abuse Treatment, Cognitive-Behavioral (ICD-10-PCS; principal; 2021-11-10)
DX: F10.20 Alcohol dependence, uncomplicated (principal); F12.20 Cannabis dependence, uncomplicated; F17.210 Nicotine dependence, cigarettes, uncomplicated; G47.00 Insomnia, unspecified; I10 Essential (primary) hypertension; Z20.828 Contact with and (suspected) exposure to other viral communicable diseases
CPT/HCPCS: 36415; 80053; 81003; 85027; 86780; 86803; C9803-CS; U0003; U0005